=== PATIENT | male | born 1945 | race Caucasian/White ===

== ENCOUNTER 2018-12-25 08:43 | Inpatient (IN) | payer MEDICARE, OTHER ==
[~2018-12-25] VITALS: Ht 167.6 cm; Wt 65.5 kg
[2018-12-25 12:30] VITALS: BP 144/85
[2018-12-25 14:00] VITALS: BP 145/83
[2018-12-25] MEDS ORDERED: ELIQ5TAB PO (14:02)
[2018-12-25] MEDS ORDERED: QUET1TAB7 PO (14:02)
[2018-12-25] MEDS ORDERED: MELA3TAB49 PO (14:02)
[2018-12-25] MEDS ORDERED: ACETAMINOPHEN TAB 650MG DOSE (2X325MG) PO PRN (15:00)
[2018-12-25] MEDS ORDERED: traZODone 25MG PER 1/2 TABLET PO PRN (15:00)
[2018-12-25 16:25] LABS: FREE T4 1.02 NG/DL (0.76-1.46); THYROID STIMULATING HORMONE 1.35 uIU/ML (0.358-3.740)
[2018-12-25 20:00] VITALS: BP 122/66
--- NOTE | 2018-12-25 20:56 | CR ---
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 The reason for the medical consultation is for medical management. At this time, the patient is doing well. He is awake, alert and oriented times two. PAST MEDICAL HISTORY: 1. Hypertension. 2. Hyperlipidemia. 3. Dementia. 4. Atrial fibrillation. ALLERGIES: He has drug allergies to [id number] (MYRIAM) INHIBITORS. FAMILY HISTORY: Noncontributory. SOCIAL HISTORY: The patient denies tobacco, alcohol, or illicit drugs. MEDICATIONS: - Apixaban 5 mg by mouth twice a day - melatonin 3 mg by mouth at bedtime as needed - quetiapine 25 mg by mouth at bedtime as needed REVIEW OF SYSTEMS: Negative for all ten major systems except what is mentioned in the history of present illness. PHYSICAL EXAMINATION: VITAL SIGNS: Blood pressure 145/83, heart rate is 106 and regular, respiratory rate is 20, temperature 98.3, oxygen saturation is 100% on room air. Head is atraumatic, normocephalic. Neck is supple with no jugular venous distention (JVD). Lungs clear to auscultation. S1, S2 audible. No murmurs appreciated. Abdomen is soft. Positive bowel sounds. No pedal edema. Skin is intact. Neurologic examination, the patient has +4 strength in his right upper and lower extremities and +5 in his left upper and lower extremities. +2 reflexes bilaterally. Cranial nerves are grossly intact. LABORATORIES: Sodium 136, potassium 4.4, chloride 102, glucose 90, BUN 25, creatinine 1.3. Hemoglobin A1/c 5.5, WBC 8.1, hemoglobin 14.8, hematocrit 42.3, platelets 187,000. IMPRESSION: 1. Left MCA territory infarct. 2. Hypertension. 3. Hyperlipidemia. 4. Atrial fibrillation. PLAN: The patient at this time is medically stable. There is no intervention necessary medically. Recommend to continue current medications and we will work alongside the physiatry department.
[2018-12-25] MEDS: OMEGA-3 1000MG CAPSULE PO SCH (21:54)
[2018-12-25] MEDS: MELATONIN 1 MG PO SCH (21:54)
[2018-12-25] MEDS: APIXABAN 5 MG TAB (ELIQUIS) PO SCH (21:55)
[2018-12-25] MEDS: MAGNESIUM OXIDE 400 MG TAB (MAG-OX) PO SCH (21:55)
[2018-12-26] MEDS ORDERED: HALOPERIDOL 5 MG/ML VIAL (J1630) IV PRN
[2018-12-26] MEDS ORDERED: HALOPERIDOL 5 MG/ML VIAL (J1630) IM PRN (00:30)
[2018-12-26 01:11] LABS: APPEARANCE, URINE CLEAR (CLEAR); BACTERIA, URINE AUTO NEGATIVE (NEGATIVE); BILIRUBIN, URINE AUTO NEGATIVE (NEGATIVE); BLOOD, URINE BLOOD NEGATIVE (NEGATIVE); COLOR, URINE YELLOW (YELLOW); GLUCOSE, URINE (UA) AUTO NEGATIVE (NEGATIVE); KETONE, URINE AUTO NEGATIVE (NEGATIVE); LEUKOCYTE ESTERASE, URINE AUTO NEGATIVE (NEGATIVE); NITRITE, URINE AUTO NEGATIVE (NEGATIVE); PROTEIN, URINE AUTO NEGATIVE (NEGATIVE); RBC, URINE AUTO 1 /HPF (0-3); SQUAMOUS EPITHELIAL CELL UR AU 0 /HPF (0-6); UROBILINOGEN, URINE AUTO 0.2 mg/dL (0.0-2.0); WBC, URINE AUTO 0 /HPF (0-3)
[2018-12-26 06:00] VITALS: BP 149/86
[2018-12-26 08:04] LABS: BASO # 0.1 10^3/uL (0.0-0.2); BASO % 0.9 % (0.0-1.0); EOS # 0.5 10^3/uL (0.0-0.50); HEMATOCRIT 43.2 % (42.0-52.0); HEMOGLOBIN 14.2 g/dl (13.5-17.5); LYMPH # 1.5 10^3/uL (1.5-4.5); LYMPH % 20.3 % (24.0-44.0); MEAN CORPUSCULAR HEMOGLOBIN 30.4 pg (27.0-33.0); MEAN CORPUSCULAR HGB CONC 32.9 g/dl (32.0-36.5); MEAN CORPUSCULAR VOLUME 92.5 fl (80.0-96.0); MONO # 0.5 10^3/uL (0.0-0.8); MONO % 6.8 % (0.0-5.0); NEUTROPHILS # 4.8 10^3/uL (1.8-7.7); NEUTROPHILS % 64.7 % (36.0-66.0); PLATELET COUNT, AUTOMATED 191 10^3/uL (150-450); RED BLOOD COUNT 4.67 10^6/uL (4.30-6.10); WHITE BLOOD COUNT 7.5 10^3/uL (4.0-10.0)
[2018-12-26 08:33] LABS: ALBUMIN 3.4 GM/DL (3.2-5.2); ALT/SGPT 34 U/L (12-78); BILIRUBIN,TOTAL 0.8 MG/DL (0.2-1.0); BLOOD UREA NITROGEN 18 MG/DL (7-18); CALCIUM LEVEL 8.9 MG/DL (8.8-10.2); CARBON DIOXIDE LEVEL 28 MEQ/L (21-32); CHLORIDE LEVEL 103 MEQ/L (98-107); CREATININE FOR GFR 1.18 MG/DL (0.70-1.30); GLOMERULAR FILTRATION RATE > 60.0 (>42); GLUCOSE, FASTING 108 MG/DL (70-100); SODIUM LEVEL 139 MEQ/L (136-145); TOTAL PROTEIN 7.4 GM/DL (6.4-8.2)
[2018-12-26] MEDS: MAGNESIUM OXIDE 400 MG TAB (MAG-OX) PO SCH ×2 (09:32→20:59)
[2018-12-26] MEDS: VITAMIN D 1,000 INTERNATIONAL UNITS TABLET PO SCH (09:32)
[2018-12-26] MEDS: APIXABAN 5 MG TAB (ELIQUIS) PO SCH ×2 (09:32→20:59)
[2018-12-26] MEDS: OMEGA-3 1000MG CAPSULE PO SCH ×2 (09:32→20:59)
[2018-12-26 14:00] VITALS: BP 124/72
--- NOTE | 2018-12-26 14:08 | HPEPDOC ---
Lingo Cleaner Note DATE OF ADMISSION: Dec 25, 2018 SOURCE OF ADMISSION INFORMATION: SAMANTHA records and CHIEF COMPLAINT: stroke HISTORY OF PRESENT ILLNESS: 73M pmh Afib and CAD s/p CABG, HLD, CKD3 who was on Pradaxa, but stopped taking it September 2018, recent diagnosis of Alzheimers who presented to [facility] on 12/22/18 complaining of aphasia and right sided facial droop. He was given tPA for a left M3-M4 occlusion seen on CTH and admitted to the stroke unit. He was started on Eliquis for his Afib and statins held per request from his caregiver who reported this medication had caused confusion and he was not able to tolerate it. 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 Follow-up CTH on 12/23/18 showing, No acute evidence of acute territorial infarction, acute intracranial hemorrhage CTA head on 12/23/09 showed Abrupt cut off of left M3 and M4 branch which may represent an occlusionatherosclerotic disease of the bilateral cervical internal carotid arteriesno significant stenosis ECHO with bubble study revealed, mild concentric left ventricular hypertrophygrossly normal LV systolic functionLVEF 55-60%..not showdiastolic dysfunction. Patients weakness and slurred speech improved, repeat imaging on 12/23/18 showed no progression of the stroke or hemorrhagic conversion. He had persistent non- fluent aphasia and difficulty following commands, trouble sequencing everyday tasks which his wafe says was not new. He was evaluated by therapy and found to have significant deficits and deemed medically appropriate for discharge to ARU. REVIEW OF SYSTEMS: The following is a completed review of systems and has been reviewed. Review of systems otherwise unremarkable. PAIN: Patient self reports no pain EYES: left eye vision deficit chronic. EARS, NOSE, & THROAT: no dysphagia, no throat pain, no rhinorrhea CARDIOVASCULAR: denies chest pain or palpitations PULMONARY: Negative. Denies shortness of breath. GASTROINTESTINAL: negative for constipation or diarrhea GENITOURINARY: Negative for dysuria NEUROLOGICAL: dementia and aphasia SKIN: no rash PSYCHIATRIC:dementia All other review of systems found to be negative. PAST MEDICAL HISTORY: Afib and CAD s/p CABG, HLD, CKD3 PAST SURGICAL HISTORY: CABGx3 2010 ALLERGIES: Please see below. MEDICATIONS: Please see below. 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 GENERAL: Pleasant and cooperative. No acute distress. HEENT: PERRL. Extraocular movements intact. left corneal injected CARDIOVASCULAR: IrRegular rate and rhythm. No murmurs, rubs, or gallops LUNGS: Clear to auscultation bilaterally. No wheezes. No rhonchi ABDOMEN: Soft, nontender, nondistended. Positive bowel sounds. Normal active bowel sounds NEUROLOGICAL: Alert and oriented to self and spouse. Cranial nerves II through XII grossly intact. Sensation grossly intact +anomia, unable to perform Luria, non-fluent aphasia +apraxia EXTREMITIES: 5\5 strength bilateral upper extremities. 5\5 strength right lower extremity. 5/5 strength in left lower extremity. SKIN: intact no rash IMAGING: Imaging documentation personally reviewed by record FUNCTIONAL STATUS: Premorbid: Requires assistance with all activities of daily life due to cognitive deficits, independent with mobility. On Admission: PT/OT mod-assist with ambulation, requiring assistance with stairs, and functional transfers, poor safety awareness. GOALS: Independent with ambulation, supervision for dressing, bathing, stairs, bathing, family training, assess for DME ASSESSMENT:73 year-old M with past medical history of Alzheimer, Afib off AC who presents status post right MCA stroke: PLAN: 1. 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 Neuro: recnet diagnosis of Alzheimers, will f/u TSH, discussed possible pseudomentia with who would not like to start SSRIs at this time -f/u stroke clinic 3. Cardio: pmh Afib ob Eliquis, refuses beta blockers, refusing statins as well for HLD -f/u with Dr. Ugarte [phone] 4. Resp: encourage incentive spirometry 5. Endo: f/u FT4 and TSH 6. DVT ppx: Eliquis 7. Insomnia- Melatonin, trazodone prn agitation 8. Dispo: TBD f/u stroke clinis 3 months [phone], F/u PMD Dr. Boone [phone] POST ADMISSION PHYSICIAN EVALUATION: Medical and functional status: Description of medical status, medical assessment: As above. Rehabilitation diagnosis and current and prior cold morbid medical conditions as above. Risk of complications and plans to mitigate them as above. Description of functional status current status is as above. Prior status as above. Status compared to preadmission: There are no clinically significant differences between the patient's current status and the information described on the preadmission screening document. Treatment plan anticipated: Treatment plan is as described above. Required disciplines including physical therapy, occupational therapy, others as noted above Intensity of services: 3 hours a day, 6 days a week. Special considerations: There are no specific special or safety considerations that would likely preclude immediate implementation of an intensive rehabilitation program or subsequently influence the plan of care. ATTESTATION: Considering all the information above, it is my best judgment that this patient requires intensive rehabilitation therapy as described above and an inpatient hospital environment due to the complexity of nursing, medical, and rehabilitation needs required by the patient. Furthermore, this patient can reasonably be expected to participate in an benefit from an inpatient rehabilitation stay with an interdisciplinary team approach to the delivery of rehabilitation care under the direction and supervision of rehabilitation physician. PROGNOSIS: good ESTIMATED LENGTH OF STAY:10-14- days. PROJECTED DISCHARGE DESTINATION: Home with family support and any durable medical equipment required to increase functional safety and mobility. TIME SPENT COUNSELING AND COORDINATING INITIAL CARE: Greater than 70 minutes. Vital Signs Vital Signs Date Time Temp Pulse Resp B/P (MAP) Pulse Ox O2 Delivery O2 Flow Rate FiO2 12/25/18 12:30 97.9 91 18 144/85 (104) 99 Laboratory Data Labs 24H Laboratory Tests 2 12/25/18 15:41: Home Medications Scheduled Apixaban Base (Eliquis) 5 Mg Tab, 5 MG PO BID, (Reported) Scheduled PRN (Melatonin) 3 Mg Tab, 3 MG PO QHS PRN for INSOMNIA, (Reported) Quetiapine Fumerate (Quetiapine Fumarate) 25 Mg Tab, 25 MG PO QHS PRN for AGITATION, (Reported) Allergies Coded Allergies: MYRIAM Inhibitors (Unverified Allergy, Unknown, 12/25/18) SABRINA CHRISTIANSON MD Dec 25, 2018 16:16
[2018-12-26 20:00] VITALS: BP 136/88
[2018-12-26] MEDS: MELATONIN 1 MG PO SCH (20:59)
[2018-12-26] MEDS: QUEtiapine FUMARATE 12.5 MG HALF-TAB PO SCH (20:59)
[2018-12-27 06:00] VITALS: BP 152/82
[2018-12-27] MEDS: OMEGA-3 1000MG CAPSULE PO SCH ×2 (08:29→20:05)
[2018-12-27] MEDS: MAGNESIUM OXIDE 400 MG TAB (MAG-OX) PO SCH ×2 (08:29→20:05)
[2018-12-27] MEDS: VITAMIN D 1,000 INTERNATIONAL UNITS TABLET PO SCH (08:29)
[2018-12-27] MEDS: APIXABAN 5 MG TAB (ELIQUIS) PO SCH ×2 (08:29→20:05)
[2018-12-27 20:00] VITALS: BP 159/74
[2018-12-27] MEDS: QUEtiapine FUMARATE 12.5 MG HALF-TAB PO SCH (20:06)
[2018-12-27] MEDS: MELATONIN 1 MG PO SCH (20:06)
[2018-12-28 06:00] VITALS: BP 103/58
[2018-12-28] MEDS: OMEGA-3 1000MG CAPSULE PO SCH ×2 (08:32→21:14)
[2018-12-28] MEDS: MAGNESIUM OXIDE 400 MG TAB (MAG-OX) PO SCH ×2 (08:33→21:14)
[2018-12-28] MEDS: APIXABAN 5 MG TAB (ELIQUIS) PO SCH ×2 (08:35→21:14)
[2018-12-28] MEDS: VITAMIN D 1,000 INTERNATIONAL UNITS TABLET PO SCH (08:35)
--- NOTE | 2018-12-28 13:17 | IPNPDOC ---
Date Seen The patient was seen on 12/28/18. Progress Note HPI: 73-year-old male transferred 12/25/[address] at 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 No acute medical complaints today. Denies any fevers, chills, weakness, fatigue, Headache, Chest Pain, Shortness of breath, cough, palpitations, abdominal pain, N/V/D or changes in bowel or bladder habits. PAST MEDICAL HISTORY: Afib CAD s/p CABG, HLD, CKD3 Dementia PAST SURGICAL HISTORY: CABGx3 2010 PE: GEN: 73yoM, appears stated age. Well-nourished, well developed. No acute distress. Alert and oriented to person, looks to his spouse to answer questions. HEENT: Normocephalic, atraumatic. Sclera are nonicteric. Conjunctiva without injection. Nose midline. No facial asymmetry. Moist mucous membranes. CHEST: Regular rate and rhythm, +S1, +S2 LUNGS: Clear to auscultation bilaterally. No wheezes, rales, or rhonchi. ABD: Round, soft, non-tender, non-distended. +Bowel sounds throughout. No rebound or guarding. EXT: No lower extremity edema appreciated. SKIN: [place], dry, warm. No rashes. NEURO: Reduced strength RUE/RLE. A&P: 73-year-old male transferred 12/25/[address] 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 1. Left MCA CVA. Mgmt as per Dr Leif WALTERS. PT as per Dr Leif WALTERS. OT as per Dr Leif WALTERS. ST as per Dr Leif WALTERS. Disposition as per Dr Leif WALTERS. DVT prophylaxis, Pt is on Eliquis. Outpt F/U with Neurology. 2. Afib. HR 89-104. Pt on Eliquis. 3. CAD/CABG. As per records, Patient and have declined beta-toi. Pt is on Eliquis. As per records, no statin per request from his who reported this medication had caused confusion and he was not able to tolerate it. 4. HLD. As per records, no statin per request from his who reported this medication had caused confusion and he was not able to tolerate it. 5. CKD3. SCR 1.18. Monitor. 6. Dementia. FILEMON at bedside. Fall precautions. Pt declines Seroquel HS previously ordered. 7. Hypomagnesemia. Continue supplement. Mag level in AM. VS, I&O, 24H, Fishbone Vital Signs/I&O Vital Signs Date Time Temp Pulse Resp B/P (MAP) Pulse Ox O2 Delivery O2 Flow Rate FiO2 12/28/18 06:00 97.8 85 19 103/58 (73) 99 I&O- Last 24 Hours up to 6 AM0 12/28/18 06:00 Intake Total 880 ml Output Total 0 ml Balance 880 ml Laboratory Data Microbiology Microbiology 12/26/18 Urine Culture - Final, Complete Orin Emery Dec 28, 2018 13:17
[2018-12-28] MEDS ORDERED: SODIUM CHLORIDE NASAL 0.65% SPRAY BTL (OCEAN) PRN (13:30)
[2018-12-28 14:00] VITALS: BP 150/84
[2018-12-28 20:00] VITALS: BP 139/78
[2018-12-28] MEDS: QUEtiapine FUMARATE 12.5 MG HALF-TAB PO SCH (21:13)
[2018-12-28] MEDS: MELATONIN 1 MG PO SCH (21:14)
[2018-12-29 04:35] VITALS: BP 132/76
[2018-12-29 08:05] LABS: HEMOGLOBIN 14.4 g/dl (13.5-17.5); MEAN CORPUSCULAR HEMOGLOBIN 30.5 pg (27.0-33.0); MEAN CORPUSCULAR HGB CONC 32.7 g/dl (32.0-36.5); MEAN CORPUSCULAR VOLUME 93.2 fl (80.0-96.0); PLATELET COUNT, AUTOMATED 203 10^3/uL (150-450); RED BLOOD COUNT 4.72 10^6/uL (4.30-6.10); WHITE BLOOD COUNT 8.2 10^3/uL (4.0-10.0)
[2018-12-29] MEDS: MAGNESIUM OXIDE 400 MG TAB (MAG-OX) PO SCH (09:32)
[2018-12-29] MEDS: OMEGA-3 1000MG CAPSULE PO SCH ×2 (09:32→20:51)
[2018-12-29] MEDS: VITAMIN D 1,000 INTERNATIONAL UNITS TABLET PO SCH (09:32)
[2018-12-29] MEDS: APIXABAN 5 MG TAB (ELIQUIS) PO SCH ×2 (09:32→20:51)
[2018-12-29 10:59] LABS: BLOOD UREA NITROGEN 17 MG/DL (7-18); GLUCOSE, FASTING 85 MG/DL (70-100)
[2018-12-29 11:00] LABS: CALCIUM LEVEL 9.1 MG/DL (8.8-10.2); CARBON DIOXIDE LEVEL 23 MEQ/L (21-32); CHLORIDE LEVEL 105 MEQ/L (98-107); CREATININE FOR GFR 1.22 MG/DL (0.70-1.30); GLOMERULAR FILTRATION RATE > 60.0 (>42); MAGNESIUM LEVEL 2.7 MG/DL (1.8-2.4); POTASSIUM SERUM 4.6 MEQ/L (3.5-5.1); SODIUM LEVEL 139 MEQ/L (136-145)
--- NOTE | 2018-12-29 13:47 | IPNPDOC ---
Date Seen The patient was seen on 12/29/18. 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 remains at bedside. Pt does not want him to receive magnesium oxide, requests magnesium glu conate. States they follow with a Excavating Machine Operator Physician in [facility] and the pt's usually titrates his magnesium dose. Denies any fevers, chills, weakness, fatigue, Headache, Chest Pain, Shortness of breath, cough, palpitations, abdominal pain, N/V/D or changes in bowel or bladder habits. PAST MEDICAL HISTORY: Afib CAD s/p CABG, HLD, CKD3 Dementia PAST SURGICAL HISTORY: CABGx3 2010 PE: GEN: 73yoM, appears stated age. Well-nourished, well developed. No acute distress. Alert and oriented to person, looks to his spouse to answer questions. HEENT: Normocephalic, atraumatic. Sclera are nonicteric. Conjunctiva without injection. Nose midline. No facial asymmetry. Moist mucous membranes. CHEST: Regular rate and rhythm, +S1, +S2 LUNGS: Clear to auscultation bilaterally. No wheezes, rales, or rhonchi. ABD: Round, soft, non-tender, non-distended. +Bowel sounds throughout. No rebound or guarding. EXT: No lower extremity edema appreciated. SKIN: [place], dry, warm. No rashes. NEURO: Reduced strength RUE/RLE. 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 1. Left MCA CVA. Mgmt as per Dr Leif WALTERS. PT as per Dr Leif WALTERS. OT as per Dr Leif WALTERS. ST as per Dr Leif WALTERS. Disposition as per Dr Leif WALTERS. DVT prophylaxis, Pt is on Eliquis. Outpt F/U with Neurology. 2. Afib. HR 89-104. Pt on Eliquis. 3. CAD/CABG. As per records, Patient and have declined beta-toi. Pt is on Eliquis. As per records, no statin per request from his who reported this medication had caused confusion and he was not able to tolerate it. 4. HLD. As per records, no statin per request from his who reported this medication had caused confusion and he was not able to tolerate it. 5. CKD3. SCR 1.18. Monitor. 6. Dementia. FILEMON at bedside. Fall precautions. Pt declines Seroquel HS previously ordered. 7. Hypomagnesemia. Reduced supplement related to mag level 2.7 Pt declines Mag Oxide. Mag gluconate as per request. Continue with 250mg daily. Recheck BMP/mag level 12/31/18. VS, I&O, 24H, Fishbone Vital Signs/I&O Vital Signs Date Time Temp Pulse Resp B/P (MAP) Pulse Ox O2 Delivery O2 Flow Rate FiO2 12/29/18 04:35 97.8 98 18 132/76 (94) 100 I&O- Last 24 Hours up to 6 AM 12/29/18 06:00 Intake Total 780 ml Output Total 800 ml Balance -20 ml Laboratory Data 24H LABS Laboratory Tests 2 12/29/18 07:34: Nucleated Red Blood Cells % (auto) 0.0, Anion Gap 11, Glomerular Filtration Rate > 60.0, Blood Urea Nitrogen 17, Creatinine 1.22, Sodium Level 139, Potassium Level 4.6, Chloride Level 105, Carbon Dioxide Level 23, Calcium Level 9.1, Magnesium Level 2.7H CBC/BMP Laboratory Tests 12/29/18 07:34 Red Blood Count 4.72, Mean Corpuscular Volume 93.2, Mean Corpuscular Hemoglobin 30.5, Mean Corpuscular Hemoglobin Concent 32.7, Red Cell Distribution Width 13.4, Calcium Level 9.1 Microbiology Microbiology 12/26/18 Urine Culture - Final, Complete Orin Emery Dec 29, 2018 13:47
[2018-12-29 14:00] VITALS: BP 134/79
[2018-12-29] MEDS ORDERED: QUEtiapine FUMARATE 12.5 MG HALF-TAB PO PRN (17:45)
[2018-12-29 20:00] VITALS: BP 116/74
[2018-12-29] MEDS: MIRTAZAPINE 15 MG TAB PO SCH (20:51)
[2018-12-30 06:00] VITALS: BP 141/82
[2018-12-30] MEDS: LEVOTHYROXINE 12.5MCG PER 1/2 TAB (0.0125MG) PO SCH (06:44)
[2018-12-30] MEDS ORDERED: MAGNESIUM OXIDE 400 MG TAB (MAG-OX) PO SCH (09:00)
[2018-12-30] MEDS: MAGNESIUM GLUCONATE 500 MG TAB PO SCH (09:04)
[2018-12-30] MEDS: VITAMIN D 1,000 INTERNATIONAL UNITS TABLET PO SCH (09:04)
[2018-12-30] MEDS: OMEGA-3 1000MG CAPSULE PO SCH ×2 (09:04→21:00)
[2018-12-30] MEDS: APIXABAN 5 MG TAB (ELIQUIS) PO SCH ×2 (09:05→20:58)
[2018-12-30 14:00] VITALS: BP 144/87
[2018-12-30 20:00] VITALS: BP 106/71
--- NOTE | 2018-12-30 20:13 | IPNPDOC ---
PM&R Progress Note DATE OF SERVICE: Dec 29, 2018 Unemployment Specialist Progress Note Subjective: Patient seen walking the hallways with is and alter in his room, confused, but participating. reports he is not sleeping well. REVIEW OF SYSTEMS: The following is a completed review of systems and has been reviewed. Review of systems otherwise unremarkable. PAIN: Patient self reports no pain EYES: left eye vision deficit chronic. EARS, NOSE, & THROAT: no dysphagia, no throat pain, no rhinorrhea CARDIOVASCULAR: denies chest pain or palpitations PULMONARY: Negative. Denies shortness of breath. GASTROINTESTINAL: negative for constipation or diarrhea GENITOURINARY: Negative for dysuria NEUROLOGICAL: dementia and aphasia SKIN: no rash PSYCHIATRIC:dementia All other review of systems found to be negative. PHYSICAL EXAMINATION: VITAL SIGNS: Please see below. GENERAL: Pleasant and cooperative. No acute distress. HEENT: PERRL. Extraocular movements intact. left corneal injected CARDIOVASCULAR: IrRegular rate and rhythm. No murmurs, rubs, or gallops LUNGS: Clear to auscultation bilaterally. No wheezes. No rhonchi ABDOMEN: Soft, nontender, nondistended. Positive bowel sounds. Normal active bowel sounds NEUROLOGICAL: Alert and oriented to self and spouse. Cranial nerves II through XII grossly intact. Sensation grossly intact +anomia, unable to perform Luria, non-fluent aphasia +apraxia EXTREMITIES: 5\5 strength bilateral upper extremities. 5\5 strength right lower extremity. 5/5 strength in left lower extremity. SKIN: intact no rash ASSESSMENT:73 year-old M with past medical history of Alzheimer, Afib off AC who presents status post right MCA stroke: PLAN: 1. 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 Neuro: recent diagnosis of Alzheimers -f/u stroke clinic 3. Cardio: pmh Afib ob Eliquis, refuses beta blockers, refusing statins as well for HLD-medicine consulted -f/u with Dr. Ugarte [phone] 4. Resp: encourage incentive spirometry 5. Endo: FT4 and TSH wnl however borderline low, will star 12.5mcg Synthroid for suspected subclinical hypothyroidism 6. DVT ppx: Eliquis 7. Insomnia- increase Melatonin to 6mg, and start remeron for insomnia and depression- agreeable 8. Dispo: 01/04/19 f/u stroke clinis 3 months [phone], F/u PMD Dr. Boone [phone] Allergies Coded Allergies: MYRIAM Inhibitors (Unverified Allergy, Unknown, 12/25/18) Vital Signs Vital Signs Date Time Temp Pulse Resp B/P (MAP) Pulse Ox O2 Delivery O2 Flow Rate FiO2 12/30/18 14:00 98.2 98 18 144/87 (106) 98 Microbiology Microbiology 12/26/18 Urine Culture - Final, Complete Current Medications Current Medications Current Medications Acetaminophen (Tylenol Tab) 650 mg Q4HP PRN PO fever/MILD PAIN (PS 1-4); Start 12/25/18 at 15:00 Apixaban (Eliquis) 5 mg BID PO Last administered on 12/30/18at 09:05; Start 12/25/18 at 21:00 Fish Oil ([place]-3 (1000mg)) 2 cap BID PO Last administered on 12/30/18at 09:04; Start 12/25/18 at 21:00 Haloperidol (Haldol) 1 mg Q12HP PRN IM AGITATION Last administered on 12/26/18at 00:30; Start 12/26/18 at 00:30; Stop 12/26/18 at 07:38; Status DC Haloperidol (Haldol) 1 mg Q12HP PRN IV AGITATION; Start 12/26/18 at 00:00; Stop 12/26/18 at 00:24; Status DC Home Med (Med Rec Complete!) ASDIRECTED XX ; Start 12/25/18 at 14:15; Stop 12/25/18 at 14:15; Status DC Levothyroxine Sodium (Synthroid) 12.5 mcg DAILY@06 PO Last administered on 12/30/18at 06:44; Start 12/30/18 at 06:00 Magnesium Gluconate (Magnesium Gluconate) 250 mg DAILY PO Last administered on 12/30/18at 09:04; Start 12/30/18 at 09:00 Magnesium Oxide (Mag-Ox) 400 mg BID PO Last administered on 12/29/18at 09:32; Start 12/25/18 at 21:00; Stop 12/29/18 at 11:42; Status DC Magnesium Oxide (Mag-Ox) 400 mg DAILY PO ; Start 12/30/18 at 09:00; Stop 12/30/18 at 09:00; Status DC Mirtazapine (Remeron) 15 mg QPM PO Last administered on 12/29/18at 20:51; Start 12/29/18 at 21:00 Miscellaneous (Unresolved Patient Own Med Order) SEE LABEL COMMENTS DAILY XX ; Start 12/25/18 at 09:00; Stop 12/25/18 at 20:03; Status DC Patient Own Medication (Patient'S Own Med) melatonin 1 mg- take ... QHS PO Last administered on 12/28/18at 21:14; Start 12/25/18 at 21:00; Stop 12/29/18 at 20:25; Status DC Patient Own Medication (Patient'S Own Med) melatonin 3 mg- take ... QHS PO Last administered on 12/29/18at 20:50; Start 12/29/18 at 21:00 Quetiapine Fumarate (SEROquel) 12.5 mg QHS PO Last administered on 12/26/18at 20:59; Start 12/26/18 at 21:00; Stop 12/29/18 at 17:33; Status DC Quetiapine Fumarate (SEROquel) 12.5 mg QHSP PRN PO AGITATION; Start 12/29/18 at 17:45 Sodium Chloride ([place] Nasal [place]) 2 spray Q2HP PRN NA NASAL DRYNESS; Start 12/28/18 at 13:30 Trazodone HCl (Desyrel) 25 mg Q6HP PRN PO AGITATION; Start 12/25/18 at 15:00; Stop 12/26/18 at 07:41; Status DC Vitamin D (Vitamin D) 2,000 units DAILY PO Last administered on 12/30/18at 09:04; Start 12/26/18 at 09:00 SABRINA CHRISTIANSON MD Dec 30, 2018 20:13
--- NOTE | 2018-12-30 20:16 | IPNPDOC ---
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 REVIEW OF SYSTEMS: The following is a completed review of systems and has been reviewed. Review of systems otherwise unremarkable. PAIN: Patient self reports no pain EYES: left eye vision deficit chronic. EARS, NOSE, & THROAT: no dysphagia, no throat pain, no rhinorrhea CARDIOVASCULAR: denies chest pain or palpitations PULMONARY: Negative. Denies shortness of breath. GASTROINTESTINAL: negative for constipation or diarrhea GENITOURINARY: Negative for dysuria NEUROLOGICAL: dementia and aphasia SKIN: no rash PSYCHIATRIC:dementia All other review of systems found to be negative. PHYSICAL EXAMINATION: VITAL SIGNS: Please see below. GENERAL: Pleasant and cooperative. No acute distress. HEENT: PERRL. Extraocular movements intact. left corneal injected CARDIOVASCULAR: IrRegular rate and rhythm. No murmurs, rubs, or gallops LUNGS: Clear to auscultation bilaterally. No wheezes. No rhonchi ABDOMEN: Soft, nontender, nondistended. Positive bowel sounds. Normal active bowel sounds NEUROLOGICAL: Alert and oriented to self and spouse. Cranial nerves II through XII grossly intact. Sensation grossly intact +anomia, unable to perform Luria, non-fluent aphasia +apraxia EXTREMITIES: 5\5 strength bilateral upper extremities. 5\5 strength right lower extremity. 5/5 strength in left lower extremity. SKIN: intact no rash ASSESSMENT:73 year-old M with past medical history of Alzheimer, Afib off AC who presents status post right MCA stroke: PLAN: 1. Rehab: PT/OT/TRAINING DEVELOPMENT DIRECTOR for cognition 2. Neuro: recent diagnosis of Alzheimers -f/u stroke clinic 3. Cardio: pmh Afib ob Eliquis, refuses beta blockers, refusing statins as well for HLD-medicine consulted -f/u with Dr. Ugarte [phone] 4. Resp: encourage incentive spirometry 5. Endo: FT4 and TSH wnl however borderline low, will star 12.5mcg Synthroid for suspected subclinical hypothyroidism 6. DVT ppx: Eliquis 7. Insomnia-c/u increased Melatonin to 6mg and remeron for insomnia and depression- agreeable, sleep improving 8. Dispo: 01/04/19 f/u stroke clinis 3 months [phone], F/u PMD Dr. Boone [phone] Allergies Coded Allergies: MYRIAM Inhibitors (Unverified Allergy, Unknown, 12/25/18) Vital Signs Vital Signs Date Time Temp Pulse Resp B/P (MAP) Pulse Ox O2 Delivery O2 Flow Rate FiO2 12/30/18 14:00 98.2 98 18 144/87 (106) 98 Microbiology Microbiology 12/26/18 Urine Culture - Final, Complete Current Medications Current Medications Current Medications Acetaminophen (Tylenol Tab) 650 mg Q4HP PRN PO fever/MILD PAIN (PS 1-4); Start 12/25/18 at 15:00 Apixaban (Eliquis) 5 mg BID PO Last administered on 12/30/18at 09:05; Start 12/25/18 at 21:00 Fish Oil ([place]-3 (1000mg)) 2 cap BID PO Last administered on 12/30/18at 09:04; Start 12/25/18 at 21:00 Haloperidol (Haldol) 1 mg Q12HP PRN IM AGITATION Last administered on 12/26/18at 00:30; Start 12/26/18 at 00:30; Stop 12/26/18 at 07:38; Status DC Haloperidol (Haldol) 1 mg Q12HP PRN IV AGITATION; Start 12/26/18 at 00:00; Stop 12/26/18 at 00:24; Status DC Home Med (Med Rec Complete!) ASDIRECTED XX ; Start 12/25/18 at 14:15; Stop 12/25/18 at 14:15; Status DC Levothyroxine Sodium (Synthroid) 12.5 mcg DAILY@06 PO Last administered on 12/30/18at 06:44; Start 12/30/18 at 06:00 Magnesium Gluconate (Magnesium Gluconate) 250 mg DAILY PO Last administered on 12/30/18at 09:04; Start 12/30/18 at 09:00 Magnesium Oxide (Mag-Ox) 400 mg BID PO Last administered on 12/29/18at 09:32; Start 12/25/18 at 21:00; Stop 12/29/18 at 11:42; Status DC Magnesium Oxide (Mag-Ox) 400 mg DAILY PO ; Start 12/30/18 at 09:00; Stop 12/30/18 at 09:00; Status DC Mirtazapine (Remeron) 15 mg QPM PO Last administered on 12/29/18at 20:51; Start 12/29/18 at 21:00 Miscellaneous (Unresolved Patient Own Med Order) SEE LABEL COMMENTS DAILY XX ; Start 12/25/18 at 09:00; Stop 12/25/18 at 20:03; Status DC Patient Own Medication (Patient'S Own Med) melatonin 1 mg- take ... QHS PO Last administered on 12/28/18at 21:14; Start 12/25/18 at 21:00; Stop 12/29/18 at 20:25; Status DC Patient Own Medication (Patient'S Own Med) melatonin 3 mg- take ... QHS PO Last administered on 12/29/18at 20:50; Start 12/29/18 at 21:00 Quetiapine Fumarate (SEROquel) 12.5 mg QHS PO Last administered on 12/26/18at 20:59; Start 12/26/18 at 21:00; Stop 12/29/18 at 17:33; Status DC Quetiapine Fumarate (SEROquel) 12.5 mg QHSP PRN PO AGITATION; Start 12/29/18 at 17:45 Sodium Chloride ([place] Nasal [place]) 2 spray Q2HP PRN NA NASAL DRYNESS; Start at 13:30 Trazodone HCl (Desyrel) 25 mg Q6HP PRN PO AGITATION; Start 12/25/18 at 15:00; Stop 12/26/18 at 07:41; Status DC Vitamin D (Vitamin D) 2,000 units DAILY PO Last administered on 12/30/18at 09:04; Start 12/26/18 at 09:00 SABRINA CHRISTIANSON MD Dec 30, 2018 20:16
[2018-12-30] MEDS: MIRTAZAPINE 15 MG TAB PO SCH (20:58)
[2018-12-31 06:00] VITALS: BP 150/80
[2018-12-31] MEDS: LEVOTHYROXINE 12.5MCG PER 1/2 TAB (0.0125MG) PO SCH (06:30)
[2018-12-31 08:30] LABS: BLOOD UREA NITROGEN 21 MG/DL (7-18); CALCIUM LEVEL 8.8 MG/DL (8.8-10.2); CARBON DIOXIDE LEVEL 27 MEQ/L (21-32); CHLORIDE LEVEL 108 MEQ/L (98-107); GLOMERULAR FILTRATION RATE > 60.0 (>42); GLUCOSE, FASTING 87 MG/DL (70-100); MAGNESIUM LEVEL 2.5 MG/DL (1.8-2.4); SODIUM LEVEL 143 MEQ/L (136-145)
[2018-12-31] MEDS: VITAMIN D 1,000 INTERNATIONAL UNITS TABLET PO SCH (09:40)
[2018-12-31] MEDS: OMEGA-3 1000MG CAPSULE PO SCH ×2 (09:41→21:32)
[2018-12-31] MEDS: APIXABAN 5 MG TAB (ELIQUIS) PO SCH ×2 (09:41→21:32)
[2018-12-31] MEDS: MAGNESIUM GLUCONATE 500 MG TAB PO SCH (09:42)
--- NOTE | 2018-12-31 15:03 | IPNPDOC ---
Date Seen The patient was seen on 12/31/18. Progress Note HPI: 73-year-old male transferred 12/25/18 to ARU at [facility] to the care of Dr Yadav from [place] after suffering a left MCA territory CVA with residual right hemiparesis. Family remains at bedside. Pt does not want him to receive magnesium oxide, requests magnesium gl uconate. States they follow with a Silver Service Waiter Physician in [facility] and the pt's usually titrates his magnesium dose. Denies any fevers, chills, weakness, fatigue, Headache, Chest Pain, Shortness of breath, cough, palpitations, abdominal pain, N/V/D or changes in bowel or bladder habits. PAST MEDICAL HISTORY: Afib CAD s/p CABG, HLD, CKD3 Dementia PAST SURGICAL HISTORY: CABGx3 2010 PE: GEN: 73yoM, appears stated age. Well-nourished, well developed. No acute distress. Alert and oriented to person, looks to his spouse to answer questions. HEENT: Normocephalic, atraumatic. Sclera are nonicteric. Conjunctiva without injection. Nose midline. No facial asymmetry. Moist mucous membranes. CHEST: Regular rate and rhythm, +S1, +S2 LUNGS: Clear to auscultation bilaterally. No wheezes, rales, or rhonchi. ABD: Round, soft, non-tender, non-distended. +Bowel sounds throughout. No rebound or guarding. EXT: No lower extremity edema appreciated. SKIN: Olga, dry, warm. No rashes. NEURO: Reduced strength RUE/RLE. A&P: 73-year-old male transferred 12/25/18 to ARU at [facility] to the care of Dr Yadav from [place] after suffering a left MCA territory CVA with residual right hemiparesis. 1. Left MCA CVA. Mgmt as per Dr Leif WALTERS. PT as per Dr Leif WALTERS. OT as per Dr Leif WALTERS. ST as per Dr Leif WALTERS. Disposition as per Dr Leif WALTERS. DVT prophylaxis, Pt is on Eliquis. Outpt F/U with Neurology. 2. Afib. HR 89-104. Pt on Eliquis. 3. CAD/CABG. As per records, Patient and have declined beta-toi. Pt is on Eliquis. As per records, no statin per request from his who reported this medication had caused confusion and he was not able to tolerate it. 4. HLD. As per records, no statin per request from his who reported this medication had caused confusion and he was not able to tolerate it. 5. CKD3. SCR 1.20. Monitor. 6. Dementia. FILEMON at bedside. Fall precautions. Pt declines Seroquel HS previously ordered. 7. Hypomagnesemia. Reduced supplement related to mag level 2.7 Pt declines Mag Oxide. Mag gluconate as per request. Continue with 250mg daily. Mag level this AM 2.5. Continue to monitor. VS, I&O, 24H, Fishbone Vital Signs/I&O Vital Signs Date Time Temp Pulse Resp B/P (MAP) Pulse Ox O2 Delivery O2 Flow Rate FiO2 12/31/18 06:00 97.1 95 18 150/80 (103) 100 I&O- Last 24 Hours up to 6 AM0 12/31/18 06:00 Intake Total 1190 ml Output Total 0 ml Balance 1190 ml Laboratory Data 24H LABS Laboratory Tests 2 12/31/18 07:40: Anion Gap 8, Glomerular Filtration Rate > 60.0, Blood Urea Nitrogen 21H, Creatinine 1.20, Sodium Level 143, Potassium Level 4.0, Chloride Level 108H, Carbon Dioxide Level 27, Calcium Level 8.8, Magnesium Level 2.5H CBC/BMP Laboratory Tests 12/31/18 07:40 Calcium Level 8.8 Microbiology Microbiology 12/26/18 Urine Culture - Final, Complete Orin Emery Dec 31, 2018 15:03
[2018-12-31 20:00] VITALS: BP 153/72
[2018-12-31] MEDS: MIRTAZAPINE 15 MG TAB PO SCH (21:32)
[2019-01-01 06:00] VITALS: BP 132/79
[2019-01-01] MEDS: LEVOTHYROXINE 12.5MCG PER 1/2 TAB (0.0125MG) PO SCH (06:39)
[2019-01-01] MEDS: VITAMIN D 1,000 INTERNATIONAL UNITS TABLET PO SCH (09:14)
[2019-01-01] MEDS: APIXABAN 5 MG TAB (ELIQUIS) PO SCH (09:14)
[2019-01-01] MEDS: OMEGA-3 1000MG CAPSULE PO SCH (09:15)
[2019-01-01] MEDS: MAGNESIUM GLUCONATE 500 MG TAB PO SCH (09:15)
[2019-01-01] MEDS ORDERED: ELIQ5TAB PO (10:34)
[2019-01-01] MEDS ORDERED: MIRT15TA3 PO (10:34)
[2019-01-01] MEDS ORDERED: LEVO25TA5 PO (10:35)
--- NOTE | 2019-01-01 14:38 | IPNPDOC ---
PM&R Progress Note DATE OF SERVICE: Dec 31, 2018 Site Safety Manager Progress Note Subjective: Patient's agreeable to taking patient home on Friday as her son will be home to help him. REVIEW OF SYSTEMS: The following is a completed review of systems and has been reviewed. Review of systems otherwise unremarkable. PAIN: Patient self reports no pain EYES: left eye vision deficit chronic. EARS, NOSE, & THROAT: no dysphagia, no throat pain, no rhinorrhea CARDIOVASCULAR: denies chest pain or palpitations PULMONARY: Negative. Denies shortness of breath. GASTROINTESTINAL: negative for constipation or diarrhea GENITOURINARY: Negative for dysuria NEUROLOGICAL: dementia and aphasia SKIN: no rash PSYCHIATRIC:dementia All other review of systems found to be negative. PHYSICAL EXAMINATION: VITAL SIGNS: Please see below. GENERAL: Pleasant and cooperative. No acute distress. HEENT: PERRL. Extraocular movements intact. left corneal injected CARDIOVASCULAR: IrRegular rate and rhythm. No murmurs, rubs, or gallops LUNGS: Clear to auscultation bilaterally. No wheezes. No rhonchi ABDOMEN: Soft, nontender, nondistended. Positive bowel sounds. Normal active bowel sounds NEUROLOGICAL: Alert and oriented to self and spouse. Cranial nerves II through XII grossly intact. Sensation grossly intact +anomia, unable to perform Luria, non-fluent aphasia +apraxia EXTREMITIES: 5\5 strength bilateral upper extremities. 5\5 strength right lower extremity. 5/5 strength in left lower extremity. SKIN: intact no rash ASSESSMENT:73 year-old M with past medical history of Alzheimer, Afib off AC who presents status post right MCA stroke: PLAN: 1. 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 Neuro: recent diagnosis of Alzheimers -f/u stroke clinic 3. Cardio: pmh Afib ob Eliquis, refuses beta blockers, refusing statins as well for HLD-medicine consulted -f/u with Dr. Ugarte [phone] 4. Resp: encourage incentive spirometry 5. Endo: FT4 and TSH wnl however borderline low, will star 12.5mcg Synthroid for suspected subclinical hypothyroidism- instructed to have his levels checked in 6-8 weeks 6. DVT ppx: Eliquis 7. Insomnia-c/u increased Melatonin to 6mg and remeron for insomnia and depression- agreeable, sleep improving 8. Dispo: 01/01/19 with and son, discussed pushing up date with as patient's OT and PT needs have been met and his cognitive impairment/superimposed deliurm in setting of severe dementia is exacerbated in the hospital setting Allergies Coded Allergies: MYRIAM Inhibitors (Unverified Allergy, Unknown, 12/25/18) Vital Signs Vital Signs Date Time Temp Pulse Resp B/P (MAP) Pulse Ox O2 Delivery O2 Flow Rate FiO2 01/01/19 06:00 97.6 88 18 132/79 (96) 99 Microbiology Microbiology 12/26/18 Urine Culture - Final, Complete Current Medications Current Medications Current Medications Acetaminophen (Tylenol Tab) 650 mg Q4HP PRN PO fever/MILD PAIN (PS 1-4); Start 12/25/18 at 15:00; Stop 01/01/19 at 12:17; Status DC Apixaban (Eliquis) 5 mg BID PO Last administered on 01/01/19at 09:14; Start 12/25/18 at 21:00; Stop 01/01/19 at 12:17; Status DC Fish Oil ([place]-3 (1000mg)) 2 cap BID PO Last administered on 01/01/19at 09:15; Start 12/25/18 at 21:00; Stop 01/01/19 at 12:17; Status DC Haloperidol (Haldol) 1 mg Q12HP PRN IM AGITATION Last administered on 12/26/18at 00:30; Start 12/26/18 at 00:30; Stop 12/26/18 at 07:38; Status DC Haloperidol (Haldol) 1 mg Q12HP PRN IV AGITATION; Start 12/26/18 at 00:00; Stop 12/26/18 at 00:24; Status DC Home Med (Med Rec Complete!) ASDIRECTED XX ; Start 12/25/18 at 14:15; Stop 12/25/18 at 14:15; Status DC Levothyroxine Sodium (Synthroid) 12.5 mcg DAILY@06 PO Last administered on 01/01/19at 06:39; Start 12/30/18 at 06:00; Stop 01/01/19 at 12:17; Status DC Magnesium Gluconate (Magnesium Gluconate) 250 mg DAILY PO Last administered on 01/01/19at 09:15; Start 12/30/18 at 09:00; Stop 01/01/19 at 12:17; Status DC Magnesium Oxide (Mag-Ox) 400 mg BID PO Last administered on 12/29/18at 09:32; Start 12/25/18 at 21:00; Stop 12/29/18 at 11:42; Status DC Magnesium Oxide (Mag-Ox) 400 mg DAILY PO ; Start 12/30/18 at 09:00; Stop 12/30/18 at 09:00; Status DC Mirtazapine (Remeron) 15 mg QPM PO Last administered on 12/31/18 21:32; Start 12/29/18 at 21:00; Stop 01/01/19 at 12:17; Status DC Miscellaneous (Unresolved Clarification Entry) SEE LABEL COMMENTS DAILY XX ; Start 01/01/19 at 09:00; Stop 01/01/19 at 10:50; Status DC Miscellaneous (Unresolved Patient Own Med Order) SEE LABEL COMMENTS DAILY XX ; Start 12/25/18 at 09:00; Stop 12/25/18 at 20:03; Status DC Patient Own Medication (Patient'S Own Med) melatonin 1 mg- take ... QHS PO Last administered on 12/28/18 21:14; Start 12/25/18 at 21:00; Stop 12/29/18 at 20:25; Status DC Patient Own Medication (Patient'S Own Med) melatonin 3 mg- take ... QHS PO Last administered on 12/31/18 21:32; Start 12/29/18 at 21:00; Stop 01/01/19 at 12:17; Status DC Quetiapine Fumarate (SEROquel) 12.5 mg QHS PO Last administered on 12/26/18at 20:59; Start 12/26/18 at 21:00; Stop 12/29/18 at 17:33; Status DC Quetiapine Fumarate (SEROquel) 12.5 mg QHSP PRN PO AGITATION Last administered on 12/30/18 21:09; Start 12/29/18 at 17:45; Stop 01/01/19 at 12:17; Status DC Sodium Chloride ([place] Nasal [place]) 2 spray Q2HP PRN NA NASAL DRYNESS; Start 12/28/18 at 13:30; Stop 3/8/19 at 12:17; Status DC Trazodone HCl (Desyrel) 25 mg Q6HP PRN PO AGITATION; Start 12/25/18 at 15:00; Stop 12/26/18 at 07:41; Status DC Vitamin D (Vitamin D) 2,000 units DAILY PO Last administered on 01/01/19at 09:14; Start 12/26/18 at 09:00; Stop 01/01/19 at 12:17; Status DC SABRINA CHRISTIANSON MD Jan 01, 2019 14:38
--- NOTE | 2019-01-05 13:18 | PMRDS ---
DATE OF ADMISSION: 12/25/2018 DATE OF DISCHARGE: 01/01/2019 CHIEF COMPLAINT/DISCHARGE DIAGNOSIS: Stroke. HISTORY OF PRESENT ILLNESS: 73-year-old man with a past medical history of atrial fibrillation and coronary artery disease (CAD) status post coronary artery bypass graft (CABG), hyperlipidemia, chronic kidney disease (CKD) stage III, who was on Pradaxa but stopped taking it September 2018 per 's recommendation, recent diagnosis of Alzheimer's, who presented to [facility] ([facility]) on 12/22/2018 complaining of aphasia and right-sided facial droop. He was given tPA for a left M3-M4 occlusion seen on CTH and admitted to the stroke unit. He was started on Eliquis for his atrial fibrillation and statins held per request from his caregiver, his , who reported this medication had caused confusion and he was not able to tolerate it. Patient and also refused beta blockers and follow with a bag builder and integrative medicine doctor. Followup CTH on 12/23/2018 showing "No acute evidence of acute territorial infarction, acute intracranial hemorrhage . . .". CTA on 12/23/2018 showed "Abrupt cutoff of left M3 and M4 branch which may represent an occlusion . . . atherosclerotic disease of the bilateral cervical internal carotid artery . . . no significant stenosis." Echo with bubble study revealed "Mild concentric left ventricular hypertrophy . . . grossly normal LV systolic function . . . LVEF 55-60% . . . not showing diastolic dysfunction." Patient's weakness and slurred speech improved, repeat imaging on 12/23/2018 showed no progression of the stroke or hemorrhagic conversion. He had persistent non-fluid aphasia and difficulty following commands, trouble sequencing everyday tasks which his says was not new. He was evaluated by therapy and found to have significant deficits and deemed medically appropriate for discharge to acute rehabilitation unit (ARU). PAST MEDICAL HISTORY: As per history of present illness (HPI). HOSPITAL COURSE: Patient was admitted and enrolled in a comprehensive physical therapy (PT), occupational therapy, speech-language pathology program. He was maintained on Eliquis for his atrial fibrillation and beta blockers were held in addition to statins per his 's request. Free T4 and TSH levels were obtained which were borderline low normal and he was started on 12.5 mcg of Synthroid for suspected subclinical hypothyroidism, was instructed to have his levels followed up in 6-8 weeks. Patient had significant insomnia and agitation, he was started on Remeron after given permission from his and he was maintained on melatonin with improvement in his insomnia. He was found to quickly be able to complete successfully his activities of daily living (ADLs) and was ambulating well without an assistive device, noted to have worsening delirium and dementia symptoms while on the inpatient side and was discharged to home upon agreement with his who set up daycare and was provided with additional home services. DISCHARGE MEDICATIONS: - Synthroid - Remeron - Eliquis - melatonin FUNCTIONAL HISTORY: Patient was standby assist for all functional transfers including toileting. He was able to ambulate 600 feet also standby assist, able to climb 22 stairs also standby assist. Patient's and son were trained. He was to return home with outpatient speech-language pathology in addition to home services.
== END 2019-01-01 11:45 | disposition home or self-care (01) | DRG 57 ==
LOC: M PM&R 12:35
PROVIDERS: ADMIT Physical Medicine & Rehabilitation; ATTEND Physical Medicine & Rehabilitation
DX: I69.320 Aphasia following cerebral infarction (principal); I69.351 Hemiplegia and hemiparesis following cerebral infarction affecting right dominant side; G30.9 Alzheimer's disease, unspecified; F02.80 Dementia in other diseases classified elsewhere, unspecified severity, without behavioral disturbance, psychotic disturbance, mood disturbance, and anxiety; I48.91 Unspecified atrial fibrillation; I69.318 Other symptoms and signs involving cognitive functions following cerebral infarction; I25.10 Atherosclerotic heart disease of native coronary artery without angina pectoris; E78.5 Hyperlipidemia, unspecified; E02 Subclinical iodine-deficiency hypothyroidism; E83.42 Hypomagnesemia; G47.00 Insomnia, unspecified; I12.9 Hypertensive chronic kidney disease with stage 1 through stage 4 chronic kidney disease, or unspecified chronic kidney disease; N18.3 Chronic kidney disease, stage 3 (moderate); Z95.1 Presence of aortocoronary bypass graft; Z88.8 Allergy status to other drugs, medicaments and biological substances; Z79.01 Long term (current) use of anticoagulants; Z87.891 Personal history of nicotine dependence